=== PATIENT | male | born 2000 ===

== ENCOUNTER 2021-03-26 03:12 | Emergency (ER) | payer SELFPAY | END 2021-03-26 06:24 | disposition home or self-care (01) | LOC: ERS 03:12 | DX: S00.83XA Contusion of other part of head, initial encounter (principal); X58.XXXA Exposure to other specified factors, initial encounter | CPT/HCPCS: 70450; 72125 ==

== ENCOUNTER 2022-02-06 01:33 | Emergency (ER) | payer OTHER ==
[2022-02-06] MEDS ORDERED: Boostrix 0.5 ML (Tdap) VIAL (>/=7 yrs of age) ONE (03:32)
== END 2022-02-06 03:36 | disposition home or self-care (01) ==
LOC: ERS 01:33
DX: S01.511A Laceration without foreign body of lip, initial encounter (principal); Y93.67 Activity, basketball; Z23 Encounter for immunization
CPT/HCPCS: 12011; 90471; 90715